=== PATIENT | female | born 2000 | race African-American/Black ===

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

== ENCOUNTER 2020-06-13 12:51 | Emergency (ER) | payer OTHER ==
[~2020-06-13 12:51] MED LIST: FEOSOL325 MG PO; FLAGYL500 MG PO; VENTOLIN HFA IN18 GM INH; ZYRTEC10 M3 PO
[2020-06-13] MEDS ORDERED: NORCO 5-325 TA1 EACH PO (14:13)
[2020-06-13] MEDS ORDERED: KEFLEX250 MG PO (14:13)
[2020-06-13] MEDS ORDERED: NAPROXEN500 MG PO (14:13)
== END 2020-06-13 14:49 | disposition home or self-care (01) ==
LOC: FER 12:51
DX: S61.102A Unspecified open wound of left thumb with damage to nail, initial encounter (principal); S16.1XXA Strain of muscle, fascia and tendon at neck level, initial encounter; S00.83XA Contusion of other part of head, initial encounter; V49.40XA Driver injured in collision with unspecified motor vehicles in traffic accident, initial encounter; Y92.410 Unspecified street and highway as the place of occurrence of the external cause
CPT/HCPCS: 70450; 72125; 73130